=== PATIENT | female | born 1935 | race Caucasian/White ===

== ENCOUNTER 2017-02-27 09:46 | Day surgery (SDC) | payer MEDICARE ==
[2017-02-26 10:49] VITALS: BP 156/83
[2017-02-26 11:00] LABS: HEMOGLOBIN 8.5 g/dL (11.7-16.4)
[2017-02-26 11:10] LABS: BLOOD UREA NITROGEN 17 mg/dL (7-18)
[~2017-02-27] VITALS: Ht 152.4 cm; Wt 63.6 kg
[~2017-02-27 09:46] MED LIST: ALPR1TAB6 PO; APIX5TAB PO; BUPR150T20 PO; CITA20TA5 PO; CYCL-259 PO; ESTR0.5T PO; L-THYROXINE PO; METO25TA35 PO; PRIM50TA PO; TRAM50TA2 PO
[2017-02-27] MEDS ORDERED: MIDAZOLAM 1 MG/ML, 5ML ONE (11:08)
[2017-02-27] MEDS ORDERED: NITROGLYCERIN 5 MG/ML, 10ML ONE (11:08)
[2017-02-27] MEDS ORDERED: LIDOCAINE 2%, 20ML ONE (11:08)
[2017-02-27] MEDS ORDERED: BIVALIRUDIN 250 MG ONE (11:08)
[2017-02-27] MEDS ORDERED: FENTANYL PF 100 MCG/2ML ONE ×2 (11:08→12:12)
[2017-02-27] MEDS ORDERED: HEPARIN 1,000 UNITS/ML, 10ML ONE (11:08)
[2017-02-27] MEDS ORDERED: TICAGRELOR 90 MG TABLET ONE (11:08)
[2017-02-27] MEDS ORDERED: VERAPAMIL 2.5 MG/ML, 2ML ONE (11:08)
[2017-02-27] MEDS ORDERED: LABETALOL 5MG/ML, 20ML ONE (12:11)
[2017-02-27] MEDS ORDERED: SODIUM CHLORIDE 0.9% 1,000 ML IV SCH (12:41)
[2017-02-27] MEDS ORDERED: ACETAMINOPHEN 325 MG TABLET PO PRN (13:00)
[2017-02-27] MEDS ORDERED: PRIMIDONE 50 MG TABLET PO SCH (16:00)
[2017-02-27] MEDS ORDERED: APIXABAN 5 MG TABLET PO SCH (21:00)
[2017-02-28] MEDS ORDERED: LEVOTHYROXINE 100 MCG TABLET PO SCH (06:00)
[2017-02-28] MEDS ORDERED: METOPROLOL TARTRATE 25 MG TABLET PO SCH (09:00)
[2017-02-28] MEDS ORDERED: ESTRADIOL 0.5 MG TABLET PO SCH (09:00)
[2017-02-28] MEDS ORDERED: BUPROPION SR 150 MG TABLET PO SCH (09:00)
[2017-02-28] MEDS ORDERED: CITALOPRAM 20 MG TABLET PO SCH (09:00)
== END 2017-02-27 19:17 | disposition home or self-care (01) ==
LOC: STAR 09:46 → 5SO 15:00 → STAR 19:17
PROVIDERS: ATTEND Internal Medicine Cardiovascular Disease
DX: I25.110 Atherosclerotic heart disease of native coronary artery with unstable angina pectoris (principal); I27.2 Other secondary pulmonary hypertension; I35.0 Nonrheumatic aortic (valve) stenosis; I77.89 Other specified disorders of arteries and arterioles; I10 Essential (primary) hypertension; I48.91 Unspecified atrial fibrillation; E06.3 Autoimmune thyroiditis; M35.6 Relapsing panniculitis [Weber-Christian]; E03.9 Hypothyroidism, unspecified; M79.7 Fibromyalgia
CPT/HCPCS: 36415; 80048; 85025; 93460; 93567; C1760; C1894; J1644; J2250; J3010; J3490; Q9967; J0583